=== PATIENT | male | born 1950 | race Caucasian/White ===

== ENCOUNTER → 2017-04-28 | Outpatient (CLI) | payer MEDICARE ==
[2017-04-28 09:20] LABS: Blood Urea Nitrogen 14 mg/dL (9-20)
--- NOTE | 2017-04-28 12:00 | CT ---
EXAMINATION TYPE: CT soft tissue neck w con DATE OF EXAM: 04/28/2017 HISTORY: Dysphagia and posterior pharynx wall deformity per order. COMPARISON: Same day modified barium swallow. CT DLP: 329.20 mGycm. Automated Exposure Control for Dose Reduction was Utilized. TECHNIQUE: CT scan of the neck is performed with IV Contrast, patient injected with 100 ml mL of Omn ipaque 300, axial images are obtained, coronal and sagittal reformatted images are reviewed. FINDINGS: Airway: There is heterogeneous irregular prevertebral soft tissue at level of the tongue base near C2 -C3 disc space with thickening along left and right aspects identified. Superior to the origin of the esophagus C4 level there is an irregular fluid collection or posterior diverticulum from the oral ph aryngeal airway, this is seen better on seen in the swallow study. There is irregular thickening bila terally up to level of hyoid bone. Region of epiglottis and vallecula appears within normal limits. T he piriform sinuses show irregular margins with slight asymmetric diminished size on the left noted. There is moderate emphysematous change in visualized lung apices. Parotid/submandibular glands: No gross abnormality seen. Carotid/Vascular Structures: No significant plaque or stenosis the carotid bulb level bilaterally. Osseous Structures: There is reversal of normal cervical curvature centered C4-C5 level. There is mod erate disc space narrowing and spurring anteriorly C4-C5 level and C5-C6 levels. Some endplate sclero sis is present. Other: No definitive greater than 1 cm neck adenopathy is present bilaterally. Some prominent but sub centimeter lymph nodes are noted bilaterally. IMPRESSION: Suspicious irregular soft tissue of the oral pharyngeal and hypopharyngeal airway involve ment of the cricopharyngeal muscles . Discussion with patient is there was recent scope with possible lesions that were not biopsied. Neoplasm at this level cannot be excluded. Consider PET/CT to furthe r evaluate.
--- NOTE | 2017-04-28 12:11 | FL ---
EXAMINATION TYPE: FL barium swallow w video DATE OF EXAM: 04/28/2017 MODIFIED SWALLOW / DEGLUTITION STUDY CLINICAL HISTORY: Dysphagia. TECHNIQUE: Deglutition study is performed utilizing thin liquid barium, honey and nectar thick liqui d barium, barium thick putting, and barium coated cracker.A total of 2 minutes 18 seconds of fluorosc opic time was utilized during procedure. Approximately 16 cm sequences are obtained. 0 images are sen t to PACS. COMPARISON: Same-day CT neck study.. FINDINGS: The oral phase show satisfactory initiation and propagation with all modalities tested. No rmal mastication is seen with solid modalities tested. There is reversal of normal cervical curvature centered C4-C5 level. Some prominent spurring C4-C5 and C5-C6 levels are seen. The posterior orophar yngeal airway superior to the esophagus beginning inferior C2 level there is abnormal outpouching or diverticulum. Prevertebral soft tissue is thickened. There is good movement of epiglottis. There is p oor cricopharyngeal inversion. Moderate residuals accumulate at this level. There is some reflux of r esiduals into the posterior wall of the airway. Patient is able to clear this with recurrent swallowi ng. No ji aspiration is seen. IMPRESSION: Abnormal study. Correlating with CT shows abnormal irregular infiltrative tissue in the p revertebral region with cricopharyngeal involvement. Consider PET/CT to further evaluate. Please refer to speech therapist notes for further details if necessary.
== END | disposition home or self-care (01) ==
LOC: RADCTMAIN 08:31
PROVIDERS: ATTEND Otolaryngology
DX: R13.10 Dysphagia, unspecified (principal); J39.2 Other diseases of pharynx; R93.8 Abnormal findings on diagnostic imaging of other specified body structures
CPT/HCPCS: 92611; 82565; 84520; 74230; 70491; 36415; Q9967

== ENCOUNTER 2017-06-03 12:37 | Emergency (ER) | payer MEDICARE ==
[2017-06-03] MEDS ORDERED: RX INFO: IV CONTRAST WAS GIVEN 1 EACH MISC MISCELLANE PRN (14:43)
[2017-06-03] MEDS ORDERED: SODIUM CHLORIDE 0.9% 500 ML IV STA ×2 (14:43→16:08)
--- NOTE | 2017-06-03 14:47 | ED ---
General Adult HPI - General Chief complaint: Shortness of Breath Stated complaint: Diff Breathing-ca patient Time Seen by Provider: 06/03/17 14:32 Source: patient, RN notes reviewed Mode of arrival: wheelchair Limitations: no limitations - History of Present Illness Initial comments: 66-year-old male presents to the emergency department with a chief complaint of shortness of breath that has been worsening over the last 2 weeks. Patient has a history of stage IV throat cancer that he was diagnosed with one 1 month ago. He states that he started to feel shortness of breath and winded over the last few days. They called her doctor and referred here. He states that he feels as if in his lungs. He states that he did not have any chest pain with this. He states that there is no nausea or vomiting. He states that he just feels winded with any type of movement. He denies any recent fever or chills. He states it is not currently having any other symptoms. Patient denies any recent fever, chills, chest pain, back pain, abdominal pain, nausea vomiting, numbness or tingling, dysuria or hematuria, constipation or diarrhea, headaches or visual changes, or any other current symptoms. - Related Data Home Medications Medication Instructions Recorded Confirmed Hydrocodone/Chlorphen P-Stirex 15 ml PO Q4H PRN 06/03/17 06/03/17 [Hydrocodone-Chlorphen ER Susp] Ondansetron [Zofran] 4 mg PO Q8H PRN 06/03/17 06/03/17 Previous Rx's Medication Instructions Recorded Albuterol Inhaler [Ventolin Hfa 1 - 2 puff INHALATION Q4-6H PRN #1 06/03/17 Inhaler] inhaler Allergies Allergy/AdvReac Type Severity Reaction Status Date / Time No Known Allergies Allergy Verified 06/03/17 14:47 Review of Systems ROS Statement: Those systems with pertinent positive or pertinent negative responses have been documented in the HPI. ROS Other: All systems not noted in ROS Statement are negative. Past Medical History Past Medical History: Cancer Additional Past Medical History / Comment(s): throat cancer History of Any Multi-Drug Resistant Organisms: None Reported Additional Past Surgical History / Comment(s): EXPLORATORY SURGERY-RIGHT TESTICLE,RIGHT ELBOW, feeding tube, mediport Past Anesthesia/Blood Transfusion Reactions: No Reported Reaction Past Psychological History: No Psychological Hx Reported Smoking Status: Former smoker Past Alcohol Use History: Daily Past Drug Use History: Marijuana - Past Family History Mother Family Medical History: No Reported History General Exam - General Exam Comments Initial Comments: General: The patient is awake and alert, in no distress, and does not appear acutely ill. Eye: Pupils are equal, round and reactive to light, extra-ocular movements are intact; there is normal conjunctiva bilaterally. No signs of icterus. Ears, nose, mouth and throat: There are moist mucous membranes and no oral lesions. Neck: The neck is supple, there is no tenderness. Cardiovascular: There is a regular rate and rhythm. No murmur, rub or gallop is appreciated. Respiratory: Lungs are clear to auscultation, respirations are non-labored, breath sounds are equal. wheeze noted no stridor, rales, or rhonchi. Gastrointestinal: Soft, non-distended, non-tender abdomen without masses or organomegaly noted. There is no rebound or guarding present. No CVA tenderness. Bowel sounds are unremarkable. Back: There is no tenderness to palpation in the midline. There is no obvious deformity. No rashes noted. Musculoskeletal: Normal ROM, no tenderness, There is no pedal edema. There is no calf tenderness or swelling. Sensation intact. Pulses equal bilaterally 2+. Neurological: CN II-XII intact, There are no obvious motor or sensory deficits. Coordination appears grossly intact. Speech is normal. Skin: Skin is warm and dry and no rashes or lesions are noted. Psychiatric: Cooperative, appropriate mood & affect, normal judgment. Limitations: no limitations Course Vital Signs 06/03/17 06/03/17 06/03/17 13:46 15:08 15:09 Temperature 98.4 F 98.9 F Pulse Rate 102 H 108 H Respiratory 20 22 22 Rate Blood Pressure 102/70 118/75 O2 Sat by Pulse 96 96 Oximetry 06/03/17 06/03/17 06/03/17 16:10 16:51 17:08 Temperature 99 F Pulse Rate 89 88 90 Respiratory 16 Rate Blood Pressure 128/76 O2 Sat by Pulse 96 Oximetry EKG Findings - EKG Comments: EKG Findings:: normal sinus rhythm Biatrial enlargement 98 bpm, normal axis, no atopy, no S-T depressions or elevations, Medical Decision Making - Medical Decision Making 66-year-old male presents for shortness of breath history for throat cancer. At this time patient did have improvement with the breathing treatment. Patient has remained above 95% on room air and he states he is feeling better. I spoke personally with Dr. Yates the patient's oncologist. He states that The Patient Is Not Hypoxic He Can Follow-Up with Dr. Nova in the Morning. I Discussed This with the Family and They Are in Agreement with This Plan. He States That He Is Feeling Better. We Will Start Him on an Inhaler for Home. We Did Discuss Return Parameters All Questions. The Patient Stated That He Understood He Is Agreement This Plan. At This Time He Is Comfortable Discharge She Would like to Go Home. Patient Will Be Discharged. - Lab Data Result diagrams: 06/03/17 15:05 06/03/17 15:05 Lab Results 06/03/17 06/03/17 06/03/17 Range/Units 15:05 15:05 15:05 WBC 16.6 H (3.8-10.6) k/uL RBC 4.63 (4.30-5.90) m/uL Hgb 14.3 (13.0-17.5) gm/dL Hct 39.8 (39.0-53.0) % MCV 86.0 (80.0-100.0) fL MCH 30.9 (25.0-35.0) pg MCHC 36.0 (31.0-37.0) g/dL RDW 11.6 (11.5-15.5) % Plt Count 417 (150-450) k/uL Neutrophils % 83 % Lymphocytes % 8 % Monocytes % 5 % Eosinophils % 1 % Basophils % 1 % Neutrophils # 13.8 H (1.3-7.7) k/uL Lymphocytes # 1.4 (1.0-4.8) k/uL Monocytes # 0.9 (0-1.0) k/uL Eosinophils # 0.2 (0-0.7) k/uL Basophils # 0.1 (0-0.2) k/uL PT (9.0-12.0) sec INR (<1.2) APTT (22.0-30.0) sec Sodium 140 (137-145) mmol/L Potassium 4.6 (3.5-5.1) mmol/L Chloride 94 L (98-107) mmol/L Carbon Dioxide 30 (22-30) mmol/L Anion Gap 16 mmol/L BUN 21 H (9-20) mg/dL Creatinine 0.80 (0.66-1.25) mg/dL Est GFR (CKD-EPI)AfAm >90 (>60 ml/min/1.73 sqM) Est GFR (CKD-EPI)NonAf >90 (>60 ml/min/1.73 sqM) Glucose 99 (74-99) mg/dL Plasma Lactic Acid Ovidio 0.9 (0.7-2.0) mmol/L Calcium 11.7 H (8.4-10.2) mg/dL Total Bilirubin 0.5 (0.2-1.3) mg/dL AST 26 (17-59) U/L ALT 27 (21-72) U/L Alkaline Phosphatase 70 (38-126) U/L Troponin I (0.000-0.034) ng/mL Total Protein 7.6 (6.3-8.2) g/dL Albumin 3.8 (3.5-5.0) g/dL Urine Color Urine Appearance (Clear) Urine pH (5.0-8.0) Ur Specific Armour (1.001-1.035) Urine Protein (Negative) Urine Glucose (UA) (Negative) Urine Ketones (Negative) Urine Blood (Negative) Urine Nitrite (Negative) Urine Bilirubin (Negative) Urine Urobilinogen (<2.0) mg/dL Ur Leukocyte Esterase (Negative) 06/03/17 06/03/17 06/03/17 Range/Units 15:05 15:05 16:41 WBC (3.8-10.6) k/uL RBC (4.30-5.90) m/uL Hgb (13.0-17.5) gm/dL Hct (39.0-53.0) % MCV (80.0-100.0) fL MCH (25.0-35.0) pg MCHC (31.0-37.0) g/dL RDW (11.5-15.5) % Plt Count (150-450) k/uL Neutrophils % % Lymphocytes % % Monocytes % % Eosinophils % % Basophils % % Neutrophils # (1.3-7.7) k/uL Lymphocytes # (1.0-4.8) k/uL Monocytes # (0-1.0) k/uL Eosinophils # (0-0.7) k/uL Basophils # (0-0.2) k/uL PT 10.5 (9.0-12.0) sec INR 1.1 (<1.2) APTT 24.2 (22.0-30.0) sec Sodium (137-145) mmol/L Potassium (3.5-5.1) mmol/L Chloride (98-107) mmol/L Carbon Dioxide (22-30) mmol/L Anion Gap mmol/L BUN (9-20) mg/dL Creatinine (0.66-1.25) mg/dL Est GFR (CKD-EPI)AfAm (>60 ml/min/1.73 sqM) Est GFR (CKD-EPI)NonAf (>60 ml/min/1.73 sqM) Glucose (74-99) mg/dL Plasma Lactic Acid Ovidio (0.7-2.0) mmol/L Calcium (8.4-10.2) mg/dL Total Bilirubin (0.2-1.3) mg/dL AST (17-59) U/L ALT (21-72) U/L Alkaline Phosphatase (38-126) U/L Troponin I <0.012 (0.000-0.034) ng/mL Total Protein (6.3-8.2) g/dL Albumin (3.5-5.0) g/dL Urine Color Light Yellow Urine Appearance Clear (Clear) Urine pH 7.0 (5.0-8.0) Ur Specific Armour 1.027 (1.001-1.035) Urine Protein Negative (Negative) Urine Glucose (UA) Negative (Negative) Urine Ketones Negative (Negative) Urine Blood Negative (Negative) Urine Nitrite Negative (Negative) Urine Bilirubin Negative (Negative) Urine Urobilinogen <2.0 (<2.0) mg/dL Ur Leukocyte Esterase Negative (Negative) Disposition Clinical Impression: Throat cancer, SOB (shortness of breath) Disposition: HOME SELF-CARE Condition: Stable Instructions: Dyspnea (ED) Additional Instructions: Please use medication as discussed. Please follow up with family doctor if symptoms have not improved over the next two days. Please return to the emergency room if your symptoms increase or worsen or for any other concerns. Prescriptions: Albuterol Inhaler [Ventolin Hfa Inhaler] 1 - 2 puff INHALATION Q4-6H PRN #1 inhaler PRN Reason: Cough Referrals: Shavon Thomas MD [STAFF PHYSICIAN] - 1-2 days Time of Disposition: 17:29
[2017-06-03 15:18] LABS: Basophils # (A) 0.1 k/uL (0-0.2); Basophils % (A) 1 %; Eosinophils # (A) 0.2 k/uL (0-0.7); Eosinophils % (A) 1 %; HCT 39.8 % (39.0-53.0); HGB 14.3 gm/dL (13.0-17.5); Lymphocytes # (A) 1.4 k/uL (1.0-4.8); Lymphocytes % (A) 8 %; MCH 30.9 pg (25.0-35.0); Mean Platelet Volume 7.1; Monocytes # (A) 0.9 k/uL (0-1.0); Monocytes % (A) 5 %; Neutrophils # (A) 13.8 k/uL (1.3-7.7); Neutrophils % (A) 83 %; Platelet Count 417 k/uL (150-450); RBC 4.63 m/uL (4.30-5.90); RDW 11.6 % (11.5-15.5); WBC 16.6 k/uL (3.8-10.6)
[2017-06-03 15:28] LABS: ALT 27 U/L (21-72); AST 26 U/L (17-59); Albumin 3.8 g/dL (3.5-5.0); Alkaline Phosphatase 70 U/L (38-126); Anion Gap 16 mmol/L; Blood Urea Nitrogen 21 mg/dL (9-20); Calcium 11.7 mg/dL (8.4-10.2); Carbon Dioxide 30 mmol/L (22-30); Chloride 94 mmol/L (98-107); Glucose 99 mg/dL (74-99); INR 1.1 (<1.2); Partial Thromboplastin Time 24.2 sec (22.0-30.0); Potassium 4.6 mmol/L (3.5-5.1); Prothrombin Time 10.5 sec (9.0-12.0); Sodium 140 mmol/L (137-145); Total Bilirubin 0.5 mg/dL (0.2-1.3); Total Protein 7.6 g/dL (6.3-8.2)
--- NOTE | 2017-06-03 16:22 | CT ---
EXAMINATION TYPE: CT angio chest DATE OF EXAM: 06/03/2017 COMPARISON: NONE HISTORY: Patient complains of difficulty breathing. CT DLP: 144.1 mGycm CONTRAST: CT chest with contrast and 3D reconstruction with MIP imaging is performed with IV Contrast, patient injected with 100 mL of Isovue 370. Contrast-enhanced CT of the chest was performed through the course of the pulmonary arteries with paul g and mediastinal window settings submitted. 3D reconstruction with MIP imaging was also performed. PULMONARY ARTERIES: The pulmonary arteries and their major tributaries are patent. I do not see mark dence for sizable filling defect to suggest pulmonary embolic process. LUNGS: The lungs are clear and free of infiltrate. No evidence for atelectasis. No pulmonary nodule or mass is detected. No pleural effusion. MEDIASTINUM: Thoracic aorta evaluation is limited given timing of the contrast bolus.There is aneurys mal dilatation of the ascending thoracic aorta measuring 4.1 cm. Irregular plaque noted at the aortic arch distally. No definitive CT evidence to suggest dissection at this time. If there is concern f or thoracic aortic pathology consider DON. Correlate clinically . The heart is not enlarged. No mark dence for mediastinal mass. No mediastinal lymph nodes greater than 1cm. HILAR STRUCTURES: No evidence for mass. No hilar lymph nodes greater than 1 cm. UPPER ABDOMEN: No significant abnormality is seen. IMPRESSION: 1. No evidence for Pulmonary embolism at this time. 2.There is aneurysmal dilatation of the ascending thoracic aorta measuring 4.1 cm. Irregular plaque n oted at the aortic arch distally. 3. Upper lobe emphysematous changes.
[2017-06-03] MEDS ORDERED: IPRATROPIUM-ALBUTEROL 3 ML NEB INHALATION STA (16:34)
[2017-06-03 17:05] LABS: Appearance,Urine Clear (Clear); Bilirubin,Urine Negative (Negative); Blood,Urine Negative (Negative); Color,Urine Light Yellow; Glucose,Urine (UA) Negative (Negative); Ketones,Urine Negative (Negative); Leukocyte Esterase,Urine Negative (Negative); Nitrite,Urine Negative (Negative); Protein,Urine Negative (Negative); Specific Gravity,Urine 1.027 (1.001-1.035); Urobilinogen,Urine <2.0 mg/dL (<2.0)
[2017-06-03 17:46] VITALS: BP 130/72; PULSE 69; RESP 18; TEMP 97.8
== END 2017-06-03 17:44 | disposition home or self-care (01) ==
LOC: EC 12:37
DX: C14.0 Malignant neoplasm of pharynx, unspecified (principal); R06.02 Shortness of breath; Z87.891 Personal history of nicotine dependence
CPT/HCPCS: 99285; 96360; 96361; 36415; 94640; 93005; 80053; 83605; 84484; 85025; 85610; 85730; 81003; 87040; 71275; Q9967

== ENCOUNTER → 2017-06-06 | Outpatient (CLI) | payer MEDICARE ==
--- NOTE | 2017-06-07 14:15 | ECHOF ---
Referral Reason:New dx of heart murmur MEASUREMENTS -------- HEIGHT: 165.1 cm WEIGHT: 54.4 kg BP: RVIDd: 2.4 cm (< 3.3) IVSd: 1.0 cm (0.6 - 1.1) LVIDd: 3.6 cm (3.9 - 5.3) LVPWd: 1.0 cm (0.6 - 1.1) IVSs: 1.3 cm LVIDs: 2.0 cm LVPWs: 1.3 cm LA Diam: 2.3 cm (2.7 - 3.8) Ao Diam: 3.6 cm (2.0 - 3.7) AV Cusp: 1.9 cm (1.5 - 2.6) LA Diam: 2.0 cm (2.7 - 3.8) MV E Cosme: 0.66 m/s MV DecT: 311 ms MV A Cosme: 0.87 m/s MV E/A Ratio: 0.76 RAP: 5.00 mmHg RVSP: 32.72 mmHg FINDINGS -------- Sinus rhythm. This was a technically good study. The left ventricular size is normal. Left ventricular wall thickness is normal. Overall left vent ricular systolic function is normal with, an EF between 60 - 65 %. The right ventricle is normal in size and function. The left atrial size is normal. RA appears enlarged. Aortic valve is trileaflet and is mildly thickened. There is no evidence of aortic regurgitation. There is no evidence of aortic stenosis. The mitral valve leaflets are mildly thickened. There is trace mitral regurgitation. Wqfz-vw-swsiieyv tricuspid regurgitation present. Right ventricular systolic pressure is normal at < 35 mmHg. There is no evidence of pulmonary hypertension. The pulmonic valve was not well visualized. The aortic root is borderline dilated to 3.7 cm. Normal inferior vena cava with normal inspiratory collapse consistent with estimated right atrial pre ssure of 5 mmHg. The pericardium is normal. There is no pericardial effusion. CONCLUSIONS -------- 1. Sinus rhythm. 2. This was a technically good study. 3. The left ventricular size is normal. 4. Left ventricular wall thickness is normal. 5. Overall left ventricular systolic function is normal with, an EF between 60 - 65 %. 6. The left atrial size is normal. 7. RA appears enlarged. 8. Aortic valve is trileaflet and is mildly thickened. 9. The mitral valve leaflets are mildly thickened. 10. There is trace mitral regurgitation. 11. Zurg-dr-kgziknrf tricuspid regurgitation present. 12. Right ventricular systolic pressure is normal at < 35 mmHg. 13. There is no evidence of pulmonary hypertension. 14. The pulmonic valve was not well visualized. 15. The aortic root is borderline dilated to 3.7 cm. 16. There is no pericardial effusion. MAINFRAME PROGRAMMER: Binh Mackay RDCS
== END | disposition home or self-care (01) ==
LOC: RADECHMAIN 13:01
PROVIDERS: ATTEND Internal Medicine Hematology & Oncology
DX: I08.3 Combined rheumatic disorders of mitral, aortic and tricuspid valves (principal)
CPT/HCPCS: 93306

== ENCOUNTER 2018-02-01 17:15 | Emergency (ER) | payer MEDICARE ==
[2018-02-01 17:31] VITALS: RESP 18
--- NOTE | 2018-02-01 18:09 | ED ---
General Adult HPI - General Chief complaint: Recheck/Abnormal Lab/Rx Stated complaint: feeding tube problems Source: patient Mode of arrival: ambulatory Limitations: no limitations - History of Present Illness Initial comments: Dictation was produced using [employer] dictation software. please excuse any grammatical, word or spelling errors. Chief Complaint: 67-year-old male presents with PEG tube for now. History of Present Illness: Patient is 67-year-old male who had a tracheostomy and PEG tube placement. He was flushing his tube when stoop slipped out. Patient is still not weaned off of tube feedings yet. Patient states that the surgery for the PEG tube was performed in May. No other complaints at this time. The ROS documented in this emergency department record has been reviewed and confirmed by me. Those systems with pertinent positive or negative responses have been documented in the HPI. All other systems are other negative and/or noncontributory. - Related Data Home Medications Medication Instructions Recorded Confirmed Hydrocodone/Chlorphen P-Stirex 15 ml PO Q4H PRN 06/03/17 06/03/17 [Hydrocodone-Chlorphen ER Susp] Ondansetron [Zofran] 4 mg PO Q8H PRN 06/03/17 06/03/17 Previous Rx's Medication Instructions Recorded Albuterol Inhaler [Ventolin Hfa 1 - 2 puff INHALATION Q4-6H PRN #1 06/03/17 Inhaler] inhaler Allergies Allergy/AdvReac Type Severity Reaction Status Date / Time No Known Allergies Allergy Verified 02/01/18 17:31 Review of Systems ROS Statement: Those systems with pertinent positive or pertinent negative responses have been documented in the HPI. ROS Other: All systems not noted in ROS Statement are negative. Past Medical History Past Medical History: Cancer Additional Past Medical History / Comment(s): throat cancer History of Any Multi-Drug Resistant Organisms: None Reported Past Surgical History: No Surgical Hx Reported Additional Past Surgical History / Comment(s): EXPLORATORY SURGERY-RIGHT TESTICLE,RIGHT ELBOW, feeding tube, mediport Past Anesthesia/Blood Transfusion Reactions: No Reported Reaction Past Psychological History: No Psychological Hx Reported Smoking Status: Former smoker Past Alcohol Use History: Daily Past Drug Use History: Marijuana - Past Family History Mother Family Medical History: No Reported History General Exam - General Exam Comments Initial Comments: PHYSICAL EXAM: General Impression: Alert and oriented x3, not in acute distress HEENT: Normocephalic atraumatic, extra-ocular movements intact, pupils equal and reactive to light bilaterally, mucous membranes moist. Cardiovascular: Heart regular rate and rhythm, S1&S2 audible, no murmurs, rubs or gallops Chest: Lungs clear to auscultation bilaterally, no rhonchi, no wheeze, no rales Abdomen: Bowel sounds present, abdomen soft, non-tender, non-distended, no organomegaly, left upper quadrant PEG tube site clean dry and intact Musculoskeletal: Pulses present and equal in all extremities, no peripheral edema Motor: Power 5/5 bilaterally, no focal deficits noted Neurological: CN II-XII grossly intact, no focal motor or sensory deficits noted Skin: Intact with no visualized rashes Psych: Normal affect and mood Limitations: no limitations Course Vital Signs 02/01/18 17:28 Temperature 98.1 F Pulse Rate 69 Respiratory 18 Rate Blood Pressure 151/83 O2 Sat by Pulse 98 Oximetry Medical Decision Making - Medical Decision Making ED course: 70-year-old male presents with accidental PEG tube removal. The balloon on the PEG tube was lacerated. Vital signs upon arrival are within normal limits. PEG tube site clean dry and intact. Attempt was made to place 18-[place] PEG tube. There was difficulty passing the tube through the stoma. 14-[place] PEG tube was placed. Gastrografin Register was obtained showing good placement. Patient be discharged. Advised to follow-up with primary care physician. Disposition Clinical Impression: PEG tube malfunction Disposition: HOME SELF-CARE Condition: Good Is patient prescribed a controlled substance at d/c from ED?: No Referrals: Leonard Martinez MD [Primary Care Provider] - 1-2 days Time of Disposition: 19:34
--- NOTE | 2018-02-01 19:35 | XR ---
EXAMINATION TYPE: XR abdomen 1V DATE OF EXAM: 02/01/2018 7:31 PM CLINICAL HISTORY: Peg tube placement TECHNIQUE: Single supine KUB image of the abdomen is obtained after instillation of 20 cc of Isovue-3 70 contrast. COMPARISON: None. FINDINGS: Contrast is seen throughout the stomach after instillation of 20 cc of Isovue-370 through t he PEG tube. Contrast opacifies the normal expected contour of the stomach without evidence of extrav asation. Scattered gas is seen in nondilated small bowel loops. Gas and fecal material is seen in non dilated colon. The lung bases are clear and the osseous structures are intact. IMPRESSION: Appropriately placed percutaneous enteric gastric tube opacifying the gastric lumen after instillation of contrast. Gaseous distention without dilation of the large and small bowel. Nonobstr uctive bowel gas pattern.
[2018-02-01 19:47] VITALS: BP 144/74; PULSE 78; TEMP 98
== END 2018-02-01 19:47 | disposition home or self-care (01) ==
LOC: EC 17:15
DX: K94.23 Gastrostomy malfunction (principal); Z85.89 Personal history of malignant neoplasm of other organs and systems; Z87.891 Personal history of nicotine dependence
CPT/HCPCS: 74018; 99283; 43760; Q9967

== ENCOUNTER → 2021-07-12 | Outpatient (CLI) | payer MEDICARE ==
[2021-07-12 17:05] LABS: African American GFR (CKD) >90 (>60 ml/min/1.73 sqM); Blood Urea Nitrogen 29 mg/dL (9-20); Non-African American GFR(CKD) 79 (>60 ml/min/1.73 sqM)
--- NOTE | 2021-07-13 09:00 | CT ---
EXAMINATION TYPE: CT ChestAbdPelvis w con DATE OF EXAM: 07/12/2021 INDICATION: abdominal pain, hx of throat ca COMPARISON: CT a chest 06/03/2017 CT DLP: 594.7 mGycm CONTRAST: Performed with Oral Contrast and with IV Contrast, patient injected with 100 mL of Isovue 300. TECHNIQUE: Axial images at 5 mm thick sections. Reconstructed images in the coronal plane. Delayed images through the kidneys. FINDINGS: CT CHEST: Portion of the thyroid visualized is normal. There is new bilateral apical thickening. Some stranding is adjacent to the thickening on the right. On the left there may be a 1.0 cm nodule with central cavitation. Series 4 image 7. This area is new and should be suspicious. The thickening with adjacent stranding at the right apex measures 1.1 x 1.8 cm and is new. Remainder of the lung mendoza appear clear. No enlarged mediastinal or hilar adenopathy is evident. The ascending aorta diameter at the level of the main pulmonary artery is 4.0 cm. The main pulmonary artery diameter at the bifurcation is 2.[address] ABDOMEN: Liver: There is a cyst in the superior right lobe liver present previously. Spleen: Normal Pancreas: Normal Adrenal glands: The adrenal glands are normal. Gallbladder: Normal Kidneys: No masses are evident. No hydronephrosis is present. No cysts are present. Delayed images were obtained through the kidneys, which remain unremarkable. Aorta: Vascular calcification is within the aorta. Inferior vena cava: Normal. CT PELVIS: There may be some diffuse wall thickening with slight enhancement of the rectum. Distal colon has a m ore normal appearance. The remaining loops of bowel appear unremarkable. Distended small bowel loops appear unremarkable. Fecal debris is within the ascending and transverse colon. There are loops of mohamud wel which are incompletely distended or lack oral contrast limiting their evaluation. Oral contrast e xtends to the cecum. Appendix: Normal as visualized. Urinary bladder: Diffuse wall thickening to the urinary bladder may be present. Genitourinary structures: Prostate has mild prominence. Moderately extensive calcifications within th e prostate. Osseous structures: No suspicious lytic or sclerotic lesions. IMPRESSIONS: 1. Mild diffuse wall thickening through the rectum of uncertain etiology. Correlate for colitis. 2. New bilateral apical thickening. On the left there appears to be a 1 cm nodule with possible centr al cavitation. Consider additional workup for neoplasm. PET/CT could be performed.
== END | disposition home or self-care (01) ==
LOC: RADCTMAIN 16:22
PROVIDERS: ATTEND Family Medicine
DX: K62.89 Other specified diseases of anus and rectum (principal); Z85.818 Personal history of malignant neoplasm of other sites of lip, oral cavity, and pharynx
CPT/HCPCS: 82565; 84520; 71260; 74177; 36415; Q9967